=== PATIENT | female | born 1950 | race Caucasian/White ===

== ENCOUNTER 2018-09-07 08:05 | Outpatient (CLI) | payer BC, OTHER | END 2018-09-07 10:05 | disposition home or self-care (01) | LOC: SMA 08:05 | PROVIDERS: ATTEND Physician Assistant | DX: Z12.31 Encounter for screening mammogram for malignant neoplasm of breast (principal) | CPT/HCPCS: 77067 ==

== ENCOUNTER 2020-02-29 07:28 | Outpatient (CLI) | payer OTHER, MEDICARE | END 2020-02-29 21:11 | disposition home or self-care (01) | LOC: SMA 07:28 | PROVIDERS: ATTEND Specialist | DX: Z12.31 Encounter for screening mammogram for malignant neoplasm of breast (principal) | CPT/HCPCS: 77067 ==

== ENCOUNTER 2021-03-09 07:43 | Outpatient (CLI) | payer OTHER, MEDICARE | END 2021-03-10 16:42 | disposition home or self-care (01) | LOC: SMA 07:43 | PROVIDERS: ATTEND Specialist | DX: Z12.31 Encounter for screening mammogram for malignant neoplasm of breast (principal); N64.89 Other specified disorders of breast | CPT/HCPCS: 77067 ==

== ENCOUNTER 2022-04-17 07:54 | Outpatient (CLI) | payer OTHER, MEDICARE | END 2022-04-17 20:26 | disposition home or self-care (01) | LOC: SMA 07:54 | PROVIDERS: ATTEND Specialist | DX: Z12.31 Encounter for screening mammogram for malignant neoplasm of breast (principal) | CPT/HCPCS: 77067 ==

== ENCOUNTER 2023-08-07 11:50 | Outpatient (CLI) | payer OTHER, MEDICARE | END 2023-08-07 19:27 | disposition home or self-care (01) | LOC: SMA 11:50 | PROVIDERS: ATTEND Specialist | DX: Z12.31 Encounter for screening mammogram for malignant neoplasm of breast (principal); N64.89 Other specified disorders of breast; N62 Hypertrophy of breast; R92.323 Mammographic fibroglandular density, bilateral breasts; N60.19 Diffuse cystic mastopathy of unspecified breast | CPT/HCPCS: 76641; 77067 ==